=== PATIENT | male | born 1960 | race Two or more races ===

== ENCOUNTER 2017-05-11 18:25 | Emergency (ER) | payer BC ==
[2017-05-11] MEDS: Nitroglycerin 0.4 MG Tab.SL SL PRN ×2 (18:32→18:45)
[2017-05-11] MEDS ORDERED: Aspirin 81 MG Tab.Chew PO ONE (18:52)
[2017-05-11 19:19] LABS: CHLORIDE,CL 101 mmol/L (98-115); SODIUM,NA 139 mmol/L (136-145)
[2017-05-11] MEDS ORDERED: Sodium Chloride 0.9% 1,000 ML IV ONE (19:20)
[2017-05-11] MEDS ORDERED: Morphine 2 MG/ML Syringe ONE (19:35)
[2017-05-11] MEDS ORDERED: Heparin Sodium 5,000 Units/ML Vial ONE (19:59)
[2017-05-11] MEDS ORDERED: Morphine 2 MG/ML Syringe IVPUSH ONE (20:00)
[2017-05-11] MEDS: Heparin Sodium 5,000 Units/ML Vial IVPUSH ONE ×3 (20:00→20:33)
[2017-05-11 20:13] VITALS: BP 138/74
--- NOTE | 2017-05-11 20:15 | EDM.PDOC ---
ED HPI GENERAL MEDICAL PROBLEM - General Chief Complaint: Chest Pain Stated Complaint: chest pain Time Seen by Provider: 05/11/17 18:35 Source of Information: Reports: Patient, [employer] Operator History Limitations: Reports: Language Barrier - History of Present Illness INITIAL COMMENTS - FREE TEXT/NARRATIVE: 56-year-old male presents to the emergency room with chest pain and pressure with radiation to his upper back and left arm. Onset of symptoms began at approximately 6 PM this evening. Patient was complaining of shortness of breath and was diaphoretic. Initial O2 saturation showed 89% on room air and he was started on 2 L of nasal cannula. He was given 4 81 mg chewable aspirin. He was given a sublingual nitroglycerin. IV was placed in his left antecubital. EKG was completed showing normal sinus rhythm. His O2 saturation improved to 96 % on 2 L. Temperature was 99. Blood pressure was 148/84. His pulses were 64. He was given a second sublingual nitroglycerin at approximately 10 minutes after his first and really reported no improvement of his symptoms. He denies past history of coronary artery disease, hypertension, diabetes. He states he's had a prior vascular surgery in his right groin. He takes a daily baby aspirin and occasionally Tylenol. He's felt poorly over the last 3 days and has been fighting a cold for the last 2 weeks. He reports some nausea. This was a first onset developed chest pain that he experienced. He was brought in by a coworker who does most of his [place]er translation. 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 Onset: Today Onset Date: 05/11/17 Onset Time: 18:00 Duration: Minutes:, Constant Location: Reports: Chest, Back, Lower Extremity, Left Quality: Reports: Pressure Severity: Severe Improves with: Reports: None Worsens with: Reports: None Context: Reports: Other (work) Associated Symptoms: Reports: Diaphoresis, Nausea/Vomiting, Shortness of Breath Left Chest Pain Score (Numeric/FACES): 8 - Related Data Allergies Allergy/AdvReac Type Severity Reaction Status Date / Time No Known Drug Allergies Allergy Cannot Verified 05/11/17 19:09 Remember Home Meds: Home Meds Aspirin [Halfprin] 81 mg PO DAILY 05/11/17 [History] Past Medical History HEENT History: Reports: Impaired Vision, Other (See Below) Other HEENT History: glasses Cardiovascular History: Reports: Other (See Below) Other Cardiovascular History: palpitation - Past Surgical History Cardiovascular Surgical History: Reports: Other (See Below) Other Cardiovascular Surgeries/Procedures: blockage to R groin with procedure at 41 ?? Social & Family History - Tobacco Use Smoking Status *Q: Never Smoker Second Hand Smoke Exposure: Yes - Recreational Drug Use Recreational Drug Use: No ED ROS GENERAL - Review of Systems Review Of Systems: See Below Constitutional: Reports: Diaphoresis HEENT: Reports: No Symptoms Respiratory: Reports: Shortness of Breath Cardiovascular: Reports: Chest Pain, Palpitations. Denies: Blood Pressure Problem, Syncope GI/Abdominal: Reports: Abdominal Pain, Nausea : Denies: Hematuria Musculoskeletal: Reports: Shoulder Pain Skin: Reports: Diaphoresis Neurological: Reports: Headache Psychiatric: Reports: No Symptoms Hematologic/Lymphatic: Reports: No Symptoms Immunologic: Reports: No Symptoms ED EXAM, GENERAL - Physical Exam Exam: See Below Exam Limited By: No Limitations General Appearance: Alert, WD/WN, Moderate Distress Eye Exam: Bilateral Eye: EOMI, PERRL Head: Atraumatic, Normocephalic Neck: Normal Inspection, Supple, Full Range of Motion Respiratory/Chest: No Respiratory Distress, Lungs Clear, Normal Breath Sounds, Chest Non-Tender Cardiovascular: Normal Peripheral Pulses, Regular Rate, Rhythm, No Edema, No Murmur Peripheral Pulses: 2+: Carotid (L), Carotid (R), Radial (L), Radial (R), Dorsalis Pedis (L), Dorsalis Pedis (R) GI/Abdominal: Normal Bowel Sounds, No Distention, No Abnormal Bruit Back Exam: Normal Inspection Extremities: Normal Inspection, Normal Range of Motion, No Pedal Edema Neurological: Alert, Oriented, No Motor/Sensory Deficits Psychiatric: Normal Affect, Normal Mood Skin Exam: Diaphoretic Lymphatic: No Adenopathy EKG INTERPRETATION EKG Date: 05/11/17 Time: 19:06 Rhythm: NSR Rate (Beats/Min): 72 [place]: Normal P-Wave: Present QRS: Normal ST-T: Normal QT: Normal Comparison: NA - No Prior EKG Course - Vital Signs Last Recorded V/S: Last Vital Signs Temp 99 F 05/11/17 18:48 Pulse 73 05/11/17 19:05 Resp 18 05/11/17 19:05 BP 143/83 H 05/11/17 19:05 Pulse Ox 97 05/11/17 19:05 - Orders/Labs/Meds Orders: Active Orders 24 hr Category Date Time Status EKG Documentation Completion [RC] ASDIRECTED Care 05/11/17 18:51 Active CXR [Chest 2V] [CR] Stat Exams 05/11/17 19:17 Taken Nitroglycerin [Nitrostat] Med 05/11/17 18:52 Active 0.4 mg SL Q5M PRN Sodium Chloride 0.9% [Normal Saline] 1,000 ml Med 05/11/17 19:20 Active IV .BOLUS EKG 12 Lead [EK] Routine Ther 05/11/17 18:51 Ordered Medication Orders Sodium Chloride (Normal Saline) 1,000 mls @ 999 mls/hr IV .BOLUS ONE Stop: 05/11/17 20:20 Last Admin: 05/11/17 19:24 Dose: 999 mls/hr Nitroglycerin (Nitrostat) 0.4 mg SL Q5M PRN PRN Reason: Chest Pain Last Admin: 05/11/17 18:45 Dose: 0.4 mg Admin: 05/11/17 18:32 Dose: 0.4 mg Labs: Laboratory Tests 05/11/17 05/11/17 Range/Units 18:37 18:37 WBC 5.7 (5.0-10.0) 10^3/uL RBC 4.80 (4.50-6.00) 10^6/uL Hgb 13.7 (13.0-17.0) g/dL Hct 40.5 (40.0-52.0) % MCV 84.4 (82.0-92.0) fL MCH 28.6 (27.0-31.0) pg MCHC 33.8 (32.0-36.0) g/dL RDW 12.5 (11.5-14.5) % Plt Count 242 (150-300) 10^3/uL MPV 7.5 (7.4-10.4) fL Neut % (Auto) 61.1 (50.0-70.0) % Lymph % (Auto) 26.2 (20.0-40.0) % [place] % (Auto) 10.4 H (2.0-8.0) % Eos % (Auto) 1.6 (1.0-3.0) % Baso % (Auto) 0.7 (0.0-1.0) % Neut # (Auto) 3.5 (2.5-7.0) 10^3/uL Lymph # (Auto) 1.5 (1.0-4.0) 10^3/uL [place] # (Auto) 0.6 (0.1-0.8) 10^3/uL Eos # (Auto) 0.1 (0.1-0.3) 10^3/uL Baso # (Auto) 0.0 (0.0-0.1) 10^3/uL Sodium 139 (136-145) mmol/L Potassium 3.5 (3.3-5.3) mmol/L Chloride 101 (98-115) mmol/L Carbon Dioxide 25.3 (21.0-32.0) mmol/L BUN 19 (6-25) mg/dL Creatinine 0.98 (0.51-1.17) mg/dL Est Cr Clr Drug Dosing 80.46 mL/min Estimated GFR (MDRD) > 60 mL/min Glucose 120 H (70-110) mg/dL Calcium 8.8 (8.7-10.3) mg/dL Troponin I 0.08 H* (0.00-0.070) ng/mL Meds: Medications Generic Name Dose Route Start Last Admin Trade Name Freq PRN Reason Stop Dose Admin Sodium Chloride 1,000 mls @ 999 mls/hr 05/11/17 19:20 05/11/17 19:24 Normal Saline IV 05/11/17 20:20 999 mls/hr .BOLUS ONE Administration Nitroglycerin 0.4 mg 05/11/17 18:52 05/11/17 18:45 Nitrostat SL 0.4 mg Q5M PRN Administration Chest Pain Discontinued Medications Generic Name Dose Route Start Last Admin Trade Name Freq PRN Reason Stop Dose Admin Aspirin 324 mg 05/11/17 18:52 05/11/17 18:29 Aspirin PO 05/11/17 18:53 324 mg ONETIME ONE Administration Heparin Sodium (Porcine) Confirm 05/11/17 19:59 Heparin Sodium Administered 05/11/17 20:00 Dose 5,000 units .ROUTE .STK-MED ONE Heparin Sodium (Porcine) 5,000 units 05/11/17 20:01 05/11/17 20:05 Heparin Sodium IVPUSH 05/11/17 20:02 5,000 units ONETIME ONE Administration Morphine Sulfate Confirm 05/11/17 19:35 Morphine Administered 05/11/17 19:36 Dose 2 mg .ROUTE .[facility] ONE - Radiology Interpretation Free Text/Narrative:: Chest x-ray 2 views PA and lateral Impression: -Normal chest x-ray - Re-Assessments/Exams Free Text/Narrative Re-Assessment/Exam: 05/11/17 1832 Nitro given. Patient denies significant relief of pain with nitroglycerin sublingual after 10 minutes. Free Text/Narrative Re-Assessment/Exam: 05/11/17 1845 Second sublingual nitroglycerin was given. Patient states he only has very mild relief of his chest pain. Free Text/Narrative Re-Assessment/Exam: 05/11/17 20:37 Patient's troponin came back elevated 0.08. He was given 2 mg of IV morphine. Call was made to [facility] for probable non-ST elevated [place] and patient was accepted for transfer. Patient was given 5000 units of IV heparin 1 time. Chest pain remain the same. Departure - Departure Time of Disposition: 20:25 Disposition: DC/Tfer to [facility] Reason for Transfer *Q: Primary PCI Indicated Condition: Fair Clinical Impression: Unstable angina, Acute coronary syndrome Referrals: PCP,Not In Area [Primary Care Provider] - Forms: ED Department Discharge, Interfacility Transfer NIC - My Orders Last 24 Hours: My Active Orders 05/11/17 18:51 EKG Documentation Completion [RC] ASDIRECTED EKG 12 Lead [EK] Routine 05/11/17 18:52 Nitroglycerin [Nitrostat] 0.4 mg SL Q5M PRN 05/11/17 19:17 CXR [Chest 2V] [CR] Stat 05/11/17 19:20 Sodium Chloride 0.9% [Normal Saline] 1,000 ml IV .BOLUS - Assessment/Plan Last 24 Hours: My Active Orders 05/11/17 18:51 EKG Documentation Completion [RC] ASDIRECTED EKG 12 Lead [EK] Routine 05/11/17 18:52 Nitroglycerin [Nitrostat] 0.4 mg SL Q5M PRN 05/11/17 19:17 CXR [Chest 2V] [CR] Stat 05/11/17 19:20 Sodium Chloride 0.9% [Normal Saline] 1,000 ml IV .BOLUS Assessment:: 1. Unstable angina 2. Acute coronary syndrome Plan: Patient denied significant relief with 2 sublingual nitroglycerin and 2 mg of morphine IV. His troponin was elevated at 0.08. He continued to be symptomatic with chest pain. Transfer was indicated for possible NSTEMI. Patient was given 5000 units of heparin IV and was transferred by ALS to [facility] in [place]. Dr. Kay was the accepting physician.
== END 2017-05-11 22:25 | disposition critical access hospital (66) ==
LOC: KA.ED 18:25 → EDBD 18:25 → KA.ED 22:25
DX: I20.0 Unstable angina (principal); Z79.82 Long term (current) use of aspirin
CPT/HCPCS: 71020; 80048; 84484; 85025; 96361; 96374; 96375; 99285; A9270; J1644; J2270; J7030; 93005